=== PATIENT | female | born 1990 | race American Indian/Alaskan Native ===

== ENCOUNTER 2020-10-20 09:59 | Emergency (ER) | payer MEDICAID ==
[2020-10-20 10:10] VITALS: BP 141/59
--- NOTE | 2020-10-20 10:18 | Emergency Department Report ---
Chief Complaint: Rectal Pain Stated Complaint: RECTAL PROLAPSE Time Seen by Provider: 10/20/20 10:15 - HPI History of Present Illness: 30-year-old -[place] female patient presents with complaints of small bump on her anus x2 days. She reports that she has been straining for the past 5 days due to forgetting to take her Dulcolax with her iron supplements. She denies any rectal bleeding, melena/hematochezia, abdominal pain, fever/chills/sweats, or urinary symptoms. Patient states the pain is mild and occurs mainly when she strains to defecate. No current pain per patient. She states she is concerned for rectal prolapse. History is consistent with hemorrhoids. Recommend OTC Preparation H and Dulcolax with high water intake. Her vitals are normal she is stable for discharge home. Discussed signs and symptoms that should prompt immediate return to the emergency department in detail with patient who verbalizes understanding. Follow-up with primary care in 3 to 5 days. - Exam Vital Signs: Vital Signs 10/20/20 10:03 Temperature 97.9 F Pulse Rate 74 Respiratory 18 Rate Blood Pressure 141/59 O2 Sat by Pulse 100 Oximetry MSE screening note: Focused history and physical exam performed. Due to findings the following was ordered: ED Disposition for MSE Clinical Impression: Acute hemorrhoid Disposition: Z-07 MED SCREENING EXAM-LEFT Is pt being admited?: No Condition: Stable Instructions: Hemorrhoids Additional Instructions: Please purchase [id number] Preparation H and a stool softener to use daily. Drink at least 80 ounces of water a day. If your symptoms worsen or persist, return to the emergency Referrals: [facility] [Provider Group] - 3-5 Days ED Physical Exam - General Limitations: No Limitations, Language Barrier General appearance: alert, in no apparent distress - Head Head exam: Present: atraumatic, normocephalic - Eye Eye exam: Present: normal appearance. Absent: scleral icterus - Neck Neck exam: Present: normal inspection - Respiratory Respiratory exam: Present: normal lung sounds bilaterally. Absent: respiratory distress - Cardiovascular Cardiovascular Exam: Present: regular rate, normal rhythm - GI/Abdominal GI/Abdominal exam: Present: soft, normal bowel sounds. Absent: distended, tenderness, guarding, rebound, rigid - Extremities Exam Extremities exam: Present: full ROM - Back Exam Back exam: Present: normal inspection - Neurological Exam Neurological exam: Present: alert, oriented X3 - Psychiatric Psychiatric exam: Present: normal affect, normal mood - Skin Skin exam: Present: warm, dry, intact, normal color. Absent: rash ED Review of Systems ROS: Stated complaint: RECTAL PROLAPSE Other details as noted in HPI Constitutional: denies: chills, diaphoresis, fever, malaise, weakness Respiratory: denies: shortness of breath Cardiovascular: denies: chest pain Gastrointestinal: constipation. denies: abdominal pain, nausea, vomiting, d iarrhea, hematemesis, melena, hematochezia Musculoskeletal: denies: back pain Skin: denies: rash, change in color Neurological: denies: headache, numbness Hematological/Lymphatic: denies: easy bruising, swollen glands
== END 2020-10-20 10:30 | disposition left against medical advice (07) ==
LOC: ED 09:59
DX: K64.9 Unspecified hemorrhoids (principal); Z53.21 Procedure and treatment not carried out due to patient leaving prior to being seen by health care provider